=== PATIENT | male | born 1970 | race African-American/Black ===

== ENCOUNTER 2022-06-06 10:05 | Emergency (ER) | payer BC, OTHER, SELFPAY ==
[2022-06-06 10:39] VITALS: BP 110/81; PULSE 76; RESP 18; TEMP 36.4; O2SAT 99
--- NOTE | 2022-06-06 10:55 | ED.GENADULT ---
HPI - General Adult General Chief complaint: Eye Problems Stated complaint: bilateral eye drainage,rash Time Seen by Provider: 06/06/22 10:28 History of Present Illness HPI narrative: Mr Wing is a 51 y/o male. PMHx Non-contributory. Presents to [facility] today with acute complaints of bilateral eye 'puffiness', pruritus, and discharge for the past 3 days. Client reports to awake in the AM, with stickiness in his eyes, and has been using a warm compress to cleanse them in the AM. He does not wear contacts, does use prescriptive lenses. No eye pain, visual changes, or eye/global trauma. He tells me he has been ill with what he thought was viral in the past 1 week, because he did have 'cold sores' to his lips, however this has since healed. No ocular lesions. No fever. No additional acute c/o upon PE. Related Data Allergies Allergy/AdvReac Type Severity Reaction Status Date / Time iodine Allergy Mild UNKNOWN Verified 06/06/22 10:50 Iodinated Contrast Media Allergy Unknown Verified 06/06/22 10:50 morphine Allergy Unknown Verified 06/06/22 10:50 IV DYE Allergy Mild RASH Uncoded 06/06/22 10:50 SHELL FISH Allergy Mild RASH Uncoded 06/06/22 10:50 Review of Systems Review of Systems: CONSTITUTIONAL: Denies fever, chills, sweats. EYES: Denies visual changes. Positive redness, itching, & discharge. ENT: Denies rhinorrhea, congestion, sore throat, otalgia. CARDIOVASCULAR: Denies chest pain, palpitations, edema. RESPIRATORY: Denies dyspnea, wheezing, cough GASTROINTESTINAL: Denies abdominal pain, nausea, vomiting, diarrhea. GENITOURINARY: Denies dysuria, hematuria, abnormal discharge SKIN: Denies rash or itching. MUSCULOSKELETAL: Denies acute back pain, joint pain, or myalgia. NEUROLOGIC: Denies numbness, or focal weakness. PSYCHIATRIC: Denies anxiety or depression. PMFSH Social History Social History Smoking status: Former smoker Smoking end date: 09/20/10 Alcohol intake: current Exam Narrative: GENERAL: This is a well-nourished, well-developed adult, in no apparent distress. HEAD: normocephalic. EYES: PERRL. EOM intact. No nystagmus. With conjunctival erythema bilateral, mild residual lower lash line discharge/crustation. Lids everted and normal. Sclera clear/white. No herpetic lesions. EARS: External ears normal, auditory canals clear and without drainage, TMs normal. NOSE: External nose normal. Positive Rhinorrhea, no obstruction, nares patent. THROAT: Mucous membranes moist, posterior pharynx clear. No exudates. No residual mucous membrane lesion. NECK: Neck supple. CARDIOVASCULAR: Regular rate and rhythm. RESPIRATORY: Clear to auscultation. GASTROINTESTINAL: Abdomen soft. SKIN: warm, intact with no suspicious lesions or rash, good texture and turgor. NEURO: Alert and age appropriate. Course Course Level of Care: Express Care Visit Vital Signs Vital signs: Vital Signs Temperature 36.4 C 06/06/22 10:39 Pulse Rate 76 06/06/22 10:39 Respiratory Rate 18 06/06/22 10:39 Blood Pressure 110/81 06/06/22 10:39 Pulse Oximetry 99 06/06/22 10:39 Oxygen Delivery Room Air 06/06/22 10:39 Temperature 36.4 C 06/06/22 10:39 Pulse Rate 76 06/06/22 10:39 Respiratory Rate 18 06/06/22 10:39 Blood Pressure 110/81 06/06/22 10:39 Pulse Oximetry 99 06/06/22 10:39 Oxygen Delivery Room Air 06/06/22 10:39 Medical Decision Making [facility] Narrative Medical decision making narrative: -Bacterial conjunctivitis, superimposed on recent viral illness. -No ocular lesions or deficits. -Start daily Neomycin/Polymyxin Ophthalmic Gtts regimen as directed X 1 week. -Additional daily Claritin 10 mg po QD x 14 days for added antihistamine effects. -Resume all home compress and cleansing remedies. -PCP F/U 1 wk. -ER W/Emergent status changes. Pt agrees. Differential Diagnosis Differential Diagnosis: Differential Diagno
== END 2022-06-06 11:00 | disposition home or self-care (01) ==
PROVIDERS: Emergency Provider Nurse Practitioner Adult Health
DX: H10.9 Unspecified conjunctivitis (principal); Z87.891 Personal history of nicotine dependence
CPT/HCPCS: 99213; G0463

== ENCOUNTER 2024-09-12 20:40 | Inpatient (IN) | payer BC, OTHER, SELFPAY ==
--- NOTE | ~2024-09-12 | US_ITS ---
EXAMINATION: US abdomen limited DATE: 09/14/2024 08:50 INDICATION: Liver cysts TECHNIQUE: Multiple grayscale and Doppler ultrasound images of the abdomen were obtained. COMPARISON: CT dated 09/13/2024 FINDINGS: The region of the pancreas is obscured by shadowing bowel gas. Liver has normal echogenicity and cont our, with a smooth surface. There are a few anechoic hepatic cysts correspond to the largest of sever al cysts seen on prior CT which measure up to 1.1 cm. No intrahepatic biliary duct dilation suspected . Portal venous flow was seen in the hepatopetal, normal direction and has normal Doppler waveform. The gallbladder is normal in appearance. There is no cholelithiasis. The common bile duct measures 3 -4 mm, which is normal. Sonographic Noble sign was reported as negative by the humanities professor. IMPRESSION: 1. Several small hepatic cysts. Otherwise unremarkable right upper quadrant ultrasound. Reviewed, dictated and finalized at location B. NGUAL SPEECH LANGUAGE PATHOLOGIST IMPRESSION: 1. Several small hepatic cysts. Otherwise unremarkable right upper quadrant ult rasound.
--- NOTE | ~2024-09-12 | CT_ITS ---
EXAMINATION: CT chest abdomen pelvis wo con DATE: 09/13/2024 01:44 INDICATION: Right lung mass. Right upper quadrant abdominal pain. TECHNIQUE: Computed tomography (CT) of the chest, abdomen, and pelvis was performed without intraveno us contrast. Automated exposure control and iterative reconstruction technique were employed. The dos e-length product was 658.23 mGy-cm. COMPARISON: CT abdomen and pelvis 11/18/2012 FINDINGS: CHEST CT: There are airspace and groundglass opacities with air bronchograms in right upper lobe, consistent wi th pneumonia. No pleural effusion. The heart size is normal. No pericardial effusion. There is mild t horacic spondylosis. ABDOMEN/PELVIS CT: There are cysts in the liver measuring up to 12 mm. The gallbladder, spleen, pancreas, adrenal glands , and kidneys are normal. There is no urolithiasis. The prostate is mildly enlarged. There are no dil ated loops of bowel. The appendix is normal. There are no pathologically enlarged lymph nodes. There is no free intraperitoneal fluid. There is mild lumbar spondylosis. IMPRESSION: 1. Right upper lobe pneumonia. Reviewed, dictated and finalized at location A. TITCHING MACHINE OPERATOR
--- NOTE | ~2024-09-12 | XR_ITS ---
EXAMINATION: XR chest 1V portable DATE: 09/13/2024 01:29 INDICATION: Epigastric abdominal pain. TECHNIQUE: A single frontal view of the chest was obtained. COMPARISON: Chest 2 views 08/18/2008, chest CT 09/13/2024 FINDINGS: There are airspace opacities in right upper lobe with air bronchograms, consistent with pne umonia. No pleural effusion or pneumothorax. The heart size is normal. IMPRESSION: 1. Right upper lobe pneumonia. Reviewed, dictated and finalized at location A. NUE LIAISON
[2024-09-12 20:42] VITALS: BP 110/72; PULSE 112; RESP 16; TEMP 38.8; O2SAT 97
[2024-09-13] VITALS (18 sets, daily range): BP systolic 93–119; BP diastolic 52–73; PULSE 75–93; RESP 14–20; TEMP 36.6–40; O2SAT 94–100; BMI 31.4
[2024-09-13] MEDS: ACETAMINOPHEN 500 MG TABLET 1000 MG PO ×4 (00:44→23:24)
--- NOTE | 2024-09-13 00:47 | ED_ITS ---
HPI - Abdominal Pain General Chief Complaint: Abdominal Pain Stated Complaint: n/v x4 days, fevers Time Seen by Provider: 09/13/24 00:45 Source: patient and family Mode of arrival: ambulatory Limitations: no limitations History of Present Illness HPI narrative: Pt is a 54 yo male with a history of ulcerative colitis presenting to the ER for evaluation of RUQ abdominal pain, nausea and vomiting. Pt reports dull, aching abdominal pain over the past 4 days. Pt reports inability to tolerate oral intake. He visited a local urgent care and was prescribed zofran with no improvement in his symptoms. He denies bowel movement in four days. He denies dysuria or hematuria. He denies history of abdominal surgeries in the past. He states that he was diagnosed with ulcerative colitis following a colonoscopy years ago, but does not follow with GI or a PCP. He reports fever of 104F over the past four days as well. He denies cough, chest pain, shoulder pain, jaw pain. No dyspnea. Pt denies sick contacts. Related Data Allergies Allergy/AdvReac Type Severity Reaction Status Date / Time iodine Allergy Mild UNKNOWN Verified 09/12/24 20:41 Iodinated Contrast Media Allergy Unknown Unknown Verified 09/12/24 20:41 morphine Allergy Unknown Unknown Verified 09/12/24 20:41 IV DYE Allergy Mild RASH Uncoded 09/12/24 20:41 SHELL FISH Allergy Mild RASH Uncoded 09/12/24 20:41 Review of Systems 2 Review of Systems: All systems reviewed & are unremarkable except as noted in HPI and below PMFSH Past Medical History Medical History (Updated 09/13/24 @ 01:57 by Radha Higgins MD) Ulcerative colitis Social History Social History Smoking status: Former smoker Smoking end date: 09/20/10 Alcohol intake: current Exam 2 Const: General: diaphoretic Orientation/consciousness: patient oriented x3 Limitations: no limitations HENMT: Head: normal to inspection Eyes: Conjunctivae: conjunctivae normal Pupils: Equal, round and reactive pupils present Neck: Neck: no lymphadenopathy Chest: Chest palpation & inspection: normal inspection of the chest Resp: Effort & Inspection: normal respiratory effort Auscultation: clear to auscultation bilaterally Cardio: Rate: tachycardic Rhythm: regular rhythm GI: Inspection: distended GI Palp: Yes Tenderness to palpation present (GI) Auscultation: absent bowel sounds Other: Mild distension throughout, tender in the RUQ and epigastric area without rebound or guarding, no LLQ tenderness Back/Spine/Pelvis: Back: no CVA tenderness Skin: General skin exam: normal color Neuro: General: patient oriented x3 and moves all extremities Extrem: General: normal to inspection Psych: Mental Status: mental status grossly normal Course Vital Signs Vital signs: Vital Signs Temperature 38.8 C H 09/12/24 20:42 Pulse Rate 112 H 09/12/24 20:42 Respiratory Rate 16 09/12/24 20:42 Blood Pressure 110/72 09/12/24 20:42 Pulse Oximetry 97 09/12/24 20:42 Oxygen Delivery Room Air 09/12/24 20:42 Temperature 37.6 C 09/13/24 02:37 Pulse Rate 80 09/13/24 02:37 Respiratory Rate 16 09/13/24 02:37 Blood Pressure 107/73 09/13/24 02:37 Pulse Oximetry 98 09/13/24 02:37 Oxygen Delivery Room Air 09/12/24 20:42 MDM - Abdominal Pain MDM Narrative Medical decision making narrative: Patient was roomed, IV was placed, and pt initiated on sepsis protocol given vital signs. He was febrile and tachycardic. He was given a 30 ml/kg flud bolus, IV pain medication and IV zofran which was well tolerated. His labs are notable for ALLYSON with elevated Cr. No leukocytosis or lactic acidosis. He was given oral Tylenol as well. CXR concerning for right lobar pneumonia, initiated on IV antibiotics. CT Chest/abd/pelvis consistent with pneumonia, without other intrabdominal pathology. Plan for admission given ALLYSON, SIRS criteria pneumonia. Differential Diagnosis Differential diagnosis: Likely abdominal pain, acute appendicitis, calculus of kidney, constipation, diverticulitis, gastroenteritis, pancreatitis, small bowel obstruction and other (pneumonia, sepsis) Medical Records Attestation: I reviewed the patient's medical records. Lab Data Attestation: I reviewed the patient's lab results. 09/13/24 00:55 09/13/24 00:55 Labs: Lab Results 09/13/24 09/13/24 Range/Units 00:55 02:23 WBC 9.0 (4.5-10.0) K/mm3 RBC 4.37 L (4.6-6.20) M/mm3 Hgb 13.8 L (14.0-18.0) g/dL Hct 38.1 L (42.0-52.0) % MCV 87.2 (80-100) fl MCH 31.6 (26-34) pg MCHC 36.2 H (32-36) g/dl RDW 11.9 (11.5-14.5) % Plt Count 208 (150-375) k/mm3 MPV 9.0 (7.4-10.4) fl Immature Gran % (Auto) 0.4 (0-0.5) % Neut % (Auto) 77.8 H (45.5-73.1) % Lymph % (Auto) 14.1 L (18.3-44.2) % [place] % (Auto) 7.5 (2.6-8.5) % Eos % (Auto) 0.0 (0-4.4) % Baso % (Auto) 0.2 (0.2-1.2) % Lymph # (Auto) 1.26 (0.9-3.2) K/mm3 [place] # (Auto) 0.7 H (0.1-0.6) K/mm3 Eos # (Auto) 0.0 (0-0.3) K/mm3 Baso # (Auto) 0.0 (0.0-0.1) K/mm3 Abs Immat Gran (auto) 0.04 H (0.00-0.031) K/mm3 Absolute Neuts (auto) 7.0 H (1.3-6.7) K/mm3 Absolute Nucleated RBC 0.000 (0.0-0.012) K/mm3 Nucleated RBC % 0.0 (0.0-0.2) % Sodium 130 L (137-145) mmol/L Potassium 3.4 (3.4-5.0) mmol/L Chloride 104 (98-107) mmol/L Carbon Dioxide 19 L (22-30) mmol/L Anion Gap 7 (4-12) mmol/L BUN 19 (9-20) mg/dL Creatinine 1.70 H (0.7-1.3) mg/dL Estim Creat Clear Calc 43 ml/min Estimated GFR 52 L (59 - ) Glucose 120 H (65-110) mg/dL Lactic Acid 0.7 (0.7-2.0) mmol/L Calcium 8.3 L (8.4-10.2) mg/dL Total Bilirubin 0.7 (0.2-1.3) mg/dL AST 32 (17-59) U/L ALT 23 (6-50) U/L Alkaline Phosphatase 91 (38-126) U/L Troponin I < 0.012 (0.000-0.034) ng/mL Total Protein 7.0 (6.3-8.2) g/dL Albumin 3.7 (3.5-5.1) g/dL Lipase 51 (23-300) U/L Influenza A (RT-PCR) Negative (Negative) Influenza B (RT-PCR) Negative (Negative) SARS-CoV-2 RNA (RT-PCR) Negative (Negative) Imaging Data Attestation: I personally reviewed and interpreted this imaging study as follows: My impression: CXR: right middle lobe pneumonia ECG Data EKG #1: Attestation: I personally reviewed and interpreted this ECG as follows: ECG completion date: 09/13/24 ECG completion time: 01:52 Interpretation: Rate 78,normal sinus rhythm, no ST segment elevation, ID Intervals normal, QRS narrow Critical Care Time Critical Care Time Critical Care Time: Yes Total Critical Care Time: 30 Discharge Plan Discharge Instructions: Antibiotic Form Patient Language: Macedonian Prescriptions: No Action neomycin-polymyxin B-dexameth 3.5mg/mL-10,000 unit/mL-0.1 % drops,suspension 1 drp EACH EYE Q6H 7 Days Qty: 5 0RF loratadine [Claritin] 10 mg tablet 10 mg PO DAILY 14 Days Qty: 14 0RF Follow-up/Referrals: PHYSICIAN,CLINICAL UNIT EDUCATOR [Primary Care Provider] -
[2024-09-13 01:00] LABS: Basophils Percent Auto 0.2 % (0.2-1.2); Hematocrit 38.1 % (42.0-52.0); Hemoglobin 13.8 g/dL (14.0-18.0); Immature Granulocyte Absolute 0.04 K/mm3 (0.00-0.031); Immature Granulocyte Percent A 0.4 % (0-0.5); Lymphocytes Absolute Auto 1.26 K/mm3 (0.9-3.2); Lymphocytes Percent Auto 14.1 % (18.3-44.2); Mean Corpuscular HGB Conc 36.2 g/dl (32-36); Mean Corpuscular Hemoglobin 31.6 pg (26-34); Mean Corpuscular Volume 87.2 fl (80-100); Monocytes Absolute Auto 0.7 K/mm3 (0.1-0.6); Monocytes Percent Auto 7.5 % (2.6-8.5); Neutrophils Percent Auto 77.8 % (45.5-73.1); Platelet Count Result 208 k/mm3 (150-375); Red Blood Count 4.37 M/mm3 (4.6-6.20); Red Cell Distribution Width 11.9 % (11.5-14.5)
[2024-09-13 01:13] LABS: Alanine Aminotransferase 23 U/L (6-50); Albumin Level 3.7 g/dL (3.5-5.1); Alkaline Phosphatase 91 U/L (38-126); Anion Gap 7 mmol/L (4-12); Aspartate Amino Transferase 32 U/L (17-59); Bilirubin,Total 0.7 mg/dL (0.2-1.3); Blood Urea Nitrogen 19 mg/dL (9-20); Calcium 8.3 mg/dL (8.4-10.2); Carbon Dioxide 19 mmol/L (22-30); Chloride 104 mmol/L (98-107); Estimated CRCL calculation 43 ml/min; Estimated Glomerular Filt Rate 52; Glucose 120 mg/dL (65-110); Lipase 51 U/L (23-300); Potassium 3.4 mmol/L (3.4-5.0); Sodium 130 mmol/L (137-145)
--- NOTE | 2024-09-13 01:14 | ECG_ITS ---
Test Date: 2024-09-13 01:52:26 Measurements Intervals [place] Rate: 78 P: 15 IL: 156 QRS: 46 QRSD: 86 T: 52 QT: 363 QTc: 415 Interpretive Statements SINUS RHYTHM No previous ECG available for comparison Electronically Signed On 09-13-2024 13:42:10 [employer] by Luis Fernando Guallpa M.D.
[2024-09-13] MEDS: SODIUM CHLORIDE 0.9% IV 1,000 ML 999 ML IV CONT ×3 (01:28→01:31)
[2024-09-13] MEDS: ONDANSETRON INJ 4 MG/2 ML VIAL IV PUSH (01:29)
[2024-09-13] MEDS: HYDROmorphone HCL INJ (*CRX) 1 MG/ML SYR 0.5 MG IV PUSH (01:29)
[2024-09-13 01:43] LABS: Troponin I < 0.012 ng/mL (0.000-0.034)
[2024-09-13 02:43] LABS: Lactic Acid Reflex 0.7 mmol/L (0.7-2.0)
[2024-09-13 03:14] LABS: Influenza A QL RT-PCR Negative (Negative); Influenza B QL RT-PCR Negative (Negative); SARS-CoV-2 RNA PCR Negative (Negative)
[2024-09-13] MEDS: AZITHROMYCIN 500 MG/NS 250 ML 500 MG/250 ML BAG 250 MG IVPB (03:28)
[2024-09-13] MEDS: SODIUM CHLORIDE 0.9% IV 600 ML 999 ML IV CONT (03:29)
--- NOTE | 2024-09-13 03:39 | PM.IMHP ---
H&P: HPI History of Present Illness Date/Time: 09/13/24 03:39 Chief Complaint: Right upper quadrant pain Narrative: This is a 54-year-old male with past medical history significant for ulcerative colitis in remission, patient presents to the emergency room due to right upper quadrant pain nausea vomiting generalized malaise, body aches and pains, chills, night sweats, poor per orally intake. Preliminary workup was significant for chest x-ray with right lung pneumonia. Patient has been admitted for further evaluation management and treatment. Review of Systems Review of Systems: Right upper quadrant pain, nausea, vomiting, generalized malaise, body aches and pains, chills, night sweats, poor per orally intake, poor appetite PMFSH Past Medical History Medical History (Updated 09/13/24 @ 03:40 by Huseyin Chen MD) Ulcerative colitis Social History Social History Smoking status: Former smoker Smoking end date: 09/20/10 Alcohol intake: current Meds Home Medications and Allergies Home Medications ?Medication ?Instructions ?Recorded ?Confirmed ?Type loratadine 10 mg tablet (Claritin) 10 mg PO DAILY 14 days #14 tabs 06/06/22 Rx [id number] 3.5 1 drp EACH EYE Q6H 7 days #5 mL 06/06/22 Rx mg/mL-10,000 unit/mL-0.1% eye drops Allergies Allergy/AdvReac Type Severity Reaction Status Date / Time iodine Allergy Mild UNKNOWN Verified 09/12/24 20:41 Iodinated Contrast Media Allergy Unknown Unknown Verified 09/12/24 20:41 morphine Allergy Unknown Unknown Verified 09/12/24 20:41 IV DYE Allergy Mild RASH Uncoded 09/12/24 20:41 SHELL FISH Allergy Mild RASH Uncoded 09/12/24 20:41 Vital Signs Vital Signs - 24 hr 09/12/24 20:42 09/13/24 00:41 09/13/24 01:14 Temperature 102 F H 104 F H 99.6 F Pulse Rate 112 H 93 Respiratory Rate 16 16 Blood Pressure 110/72 119/73 Pulse Oximetry 97 99 Oxygen Delivery Room Air 09/13/24 02:37 Temperature 99.6 F Pulse Rate 80 Respiratory Rate 16 Blood Pressure 107/73 Pulse Oximetry 98 Oxygen Delivery Exam Const: General: comfortable, no acute distress, well developed, alert, awake, ill appearing acutely and average body habitus Nutritional Appearance: average body habitus Orientation/consciousness: patient oriented x3 HENMT: Head: normal to inspection, normocephalic and atraumatic Ears: hearing grossly normal bilaterally Face/Nose/Sinus: normal facial exam Face and sinus: normal facial exam Eyes: General: appearance normal, both eyes and all related structures Pupils: Equal, round and reactive pupils present EOM: EOMs intact bilaterally Neck: Neck: full ROM, no lymphadenopathy and no JVD Thyroid: thyroid normal Lymphatic: no lymphadenopathy noted Resp: Effort & Inspection: normal respiratory effort and able to speak in complete sentences Auscultation: clear to auscultation bilaterally Cardio: Jugular venous distension: no JVD Rate: regular rate Rhythm: regular rhythm Heart sounds: S1 normal heart sound present and S2 normal heart sound present GI: GI Palp: Yes Soft to palpation and Yes No hepatosplenomegaly present : General: Yes deferred Skin: Rashes: no rashes Wounds: no wounds Neuro: General: patient oriented x3 and CN's II-XI intact bilaterally Cranial nerves: Yes CN's II-XII intact bilaterally and Yes Equal, round and reactive pupils present Cognition (Neuro): normal cognition Speech: normal speech Gait exam (Neuro): Normal gait present Motor exam (neuro): 5/5 motor strength present throughout Extrem: General: normal to inspection, full ROM, no joint enlargement and no pedal edema H&P: Results Labs Labs: Short CBC 09/13/24 Range/Units 00:55 WBC 9.0 (4.5-10.0) K/mm3 Hgb 13.8 L (14.0-18.0) g/dL Hct 38.1 L (42.0-52.0) % Plt Count 208 (150-375) k/mm3 BMP 09/13/24 00:55 Sodium 130 L Potassium 3.4 Chloride 104 Carbon Dioxide 19 L BUN 19 Creatinine 1.70 H Glucose 120 H Calcium 8.3 L Cardiac Enzymes 09/13/24 Range/Units 00:55 Troponin I < 0.012 (0.000-0.034) ng/mL Liver Function 09/13/24 Range/Units 00:55 Total Bilirubin 0.7 (0.2-1.3) mg/dL AST 32 (17-59) U/L ALT 23 (6-50) U/L Alkaline Phosphatase 91 (38-126) U/L Albumin 3.7 (3.5-5.1) g/dL Assessment and Plan Assessment and plan (1) Pneumonia involving right lung: Code(s): J18.9 - Pneumonia, unspecified organism Status: Acute Assessment and Plan: Admit to regular medical floor Patient is started on Rocephin and Zithromax Cultures in progress (2) Nausea & vomiting: Code(s): R11.2 - Nausea with vomiting, unspecified Status: Acute Assessment and Plan: Likely secondary to systemic inflammatory response (3) Ulcerative colitis: Code(s): K51.90 - Ulcerative colitis, unspecified, without complications Status: Acute Assessment and Plan: In remission Hospitalist MIPS Advance Care Plan I have confirmed that the patient's Advanced Care Plan is present, code status is documented, or surrogate decision maker is listed in patient medical record.: Yes Medication Reconciliation I have utilized all available resources to obtain, update and review the patients current medications (includes all prescriptions, OTC, herbals, cannabis, and nutritional supplements).: Yes
[2024-09-13] MEDS: SODIUM CHLORIDE 0.9% IV 1,000 ML 125 ML IV CONT ×3 (04:34→21:48)
[2024-09-13 04:49] LABS: Add Urine Microscopic? YES; Appearance Urine Clear (Clear); Bacteria Urine None Seen /hpf; Bilirubin Urine Negative (Negative); Blood Urine 2+ (Negative); Color Urine Yellow (Yellow); Glucose Urine UA Negative (Negative); Ketones Urine 2+ mg/dL (Negative); Leukocyte Esterase Ur Negative LEU/UL (Negative); Nitrate Urine Negative (Negative); Non Pathogenic Casts 0-2; Protein Urine 1+ mg/dL (Negative); Squamous Epithelial Cell Urine None Seen /hpf (Few); WBC Urine 0-5 /hpf (0-3)
--- NOTE | 2024-09-13 06:16 | ADMGEN ---
This patient, Deep Wing, was admitted to 2 Medical Room 242-. Patient/family oriented to hospital policies and general routines including ID bracelet, bed and alarms, visiting hours, pain management, procedures, bathroom and other care routines, personal items, smoking policy, room service/diet, and visiting hours. Information on how to activate the Rapid Response Team has been discussed. Patient/Family are encouraged to report perceived risks to care and to ask questions if they do not understand what they are told or what they should do.
--- NOTE | 2024-09-13 08:34 | P.PNIM_ITS ---
Progress Note: A&P Assessment and Plan (1) Pneumonia involving right lung: Code(s): J18.9 - Pneumonia, unspecified organism Status: Acute Assessment and Plan: Patient on Rocephin and Zithromax Started on Mucinex. Cultures in progress (2) Nausea & vomiting: Code(s): R11.2 - Nausea with vomiting, unspecified Status: Acute Assessment and Plan: Possibly secondary to systemic inflammatory response Denies symptoms currently. (3) Ulcerative colitis: Code(s): K51.90 - Ulcerative colitis, unspecified, without complications Status: Acute Assessment and Plan: In remission (4) Liver cyst: Code(s): K76.89 - Other specified diseases of liver Status: Acute Assessment and Plan: US liver ordered. Further w/u pending US results. Plan Continue IV abx as we follow cultures. Time Spent With Patient Time with patient: 25 - 35 minutes Subjective Date/time seen: 09/13/24 08:34 Patient states he feels alright and abdominal pain is gone for now. States starting to cough but nothing coming out. Interval history: Patient calm on bedrest and looks to be in no acute distress. Review of Systems Review of Systems: All systems reviewed & are unremarkable except as noted in HPI and below Exam Narrative: General: Fair appearing, no acute distress. HEENT: Atraumatic, PERRL, EOM, anicteric. NECK: Supple. Lungs: Clear bilaterally. Heart: RRR, no murmurs. Abdomen: Soft, non-tender, non-distended, +ve sounds X4 quadrants. Extremities: Acyanotic, no edema. Neuro: Well oriented, CN II-XII grossly intact. Psych: Pleasant and co-operative. Objective Data Vital Signs Vital Signs: Vital Signs - 24 hr 09/12/24 20:42 09/13/24 00:41 09/13/24 01:14 Temperature 102 F H 104 F H 99.6 F Pulse Rate 112 H 93 Respiratory Rate 16 16 Blood Pressure 110/72 119/73 Pulse Oximetry 97 99 Oxygen Delivery Room Air 09/13/24 02:37 09/13/24 03:52 09/13/24 04:00 Temperature 99.6 F 97.8 F 99.2 F Pulse Rate 80 77 87 Respiratory Rate 16 16 20 Blood Pressure 107/73 105/72 101/68 Pulse Oximetry 98 100 100 Oxygen Delivery 09/13/24 04:57 09/13/24 05:45 09/13/24 06:10 Temperature 98.1 F 99.2 F 100.5 F H Pulse Rate 77 87 Respiratory Rate 14 20 Blood Pressure 103/71 101/68 Pulse Oximetry 100 100 Oxygen Delivery Intake/Output Intake/Output: Intake & Output 09/10/24 09/11/24 09/12/24 09/13/24 23:59 23:59 23:59 23:59 Intake Total 3900 Balance 3900 Meds/Results Medications: Active Medications Generic Name Dose Route Start Last Admin Trade Name Freq PRN Reason Stop Dose Admin Acetaminophen 1,000 mg 09/13/24 05:32 09/13/24 06:10 Acetaminophen 500 Mg Tablet PO 1,000 mg Q6H PRN Administration Mild Pain (1-3) or Fever Al Hydrox/Mg Hydrox/Simethicone 30 ml 09/13/24 05:35 Mag Hydrox/Al Hydrox/Simeth 30 Ml Udc PO Q6H PRN Indigestion Albuterol/Ipratropium 3 ml 09/13/24 05:31 Ipratropium 0.5 Mg/Albuterol Sulfate 2.5 Mg Ampul.Neb 3 Ml INHALATION Q6HRT PRN sob Enoxaparin Sodium 40 mg 09/13/24 09:00 Enoxaparin 40 Mg/0.4 Ml Syringe SUB-Q DAILY ESTRELLA Azithromycin 500 mg in 250 mls @ 250 mls/hr 09/14/24 05:00 Zithromax IVPB Q24H ESTRELLA Sodium Chloride 1,000 mls @ 125 mls/hr 09/13/24 03:25 09/13/24 04:34 Normal Saline Iv IV CONT 125 mls/hr .Q8H ESTRELLA Administration Ondansetron HCl 4 mg 09/13/24 03:22 Ondansetron Inj 4 Mg/2 Ml Vial IV PUSH Q4H PRN Nausea Polyethylene Glycol 17 gm 09/13/24 05:35 Polyethylene Glycol 3350 17 Gm Powd.Pack PO QAM PRN Constipation Radiology Results: ITS Impressions Chest X-Ray 09/13/24 06:56 IMPRESSION: 1. Right upper lobe pneumonia. Chest/Abdomen/Pelvis CT 09/13/24 07:21 IMPRESSION: 1. Right upper lobe pneumonia. Labs Labs: Laboratory Results - last 24 hr 12/25/24 12/25/24 12/25/24 00:55 02:23 04:33 WBC 9.0 RBC 4.37 L Hgb 13.8 L Hct 38.1 L MCV 87.2 MCH 31.6 MCHC 36.2 H RDW 11.9 Plt Count 208 MPV 9.0 Immature Gran % (Auto) 0.4 Neut % (Auto) 77.8 H Lymph % (Auto) 14.1 L [place] % (Auto) 7.5 Eos % (Auto) 0.0 Baso % (Auto) 0.2 Lymph # (Auto) 1.26 [place] # (Auto) 0.7 H Eos # (Auto) 0.0 Baso # (Auto) 0.0 Abs Immat Gran (auto) 0.04 H Absolute Neuts (auto) 7.0 H Absolute Nucleated RBC 0.000 Nucleated RBC % 0.0 Sodium 130 L Potassium 3.4 Chloride 104 Carbon Dioxide 19 L Anion Gap 7 BUN 19 Creatinine 1.70 H Estim Creat Clear Calc 43 Estimated GFR 52 L Glucose 120 H Lactic Acid 0.7 Calcium 8.3 L Total Bilirubin 0.7 AST 32 ALT 23 Alkaline Phosphatase 91 Troponin I < 0.012 Total Protein 7.0 Albumin 3.7 Lipase 51 Urine Color Yellow Urine Appearance Clear Urine pH 6.0 Ur Specific [place] 1.020 Urine Protein 1+ H Urine Glucose (UA) Negative Urine Ketones 2+ H Ur Blood (Man) 2+ H Urine Nitrate Negative Urine Bilirubin Negative Urine Urobilinogen 1.0 Leukocyte Esterase Rfl Negative Urine RBC 3-5 H Urine WBC 0-5 Ur Squamous Epith Cells None seen Urine Bacteria None seen Urine Casts 0-2 Influenza A (RT-PCR) Negative Influenza B (RT-PCR) Negative SARS-CoV-2 RNA (RT-PCR) Negative Quality VTE Prophylaxis VTE prophylaxis: mechanical ordered Hospitalist [facility] Advance Care Plan I have confirmed that the patient's Advanced Care Plan is present, code status is documented, or surrogate decision maker is listed in patient medical record.: Yes Medication Reconciliation I have utilized all available resources to obtain, update and review the patients current medications (includes all prescriptions, OTC, herbals, cannabis, and nutritional supplements).: Yes
[2024-09-13] MEDS: ENOXAPARIN 40 MG/0.4 ML SYRINGE SUB-Q (08:36)
[2024-09-13] MEDS: IBUPROFEN 400 MG TABLET PO (17:17)
[2024-09-13] MEDS: guaiFENesin 12 HR 600 MG TABCR PO (17:18)
[2024-09-14] VITALS (7 sets, daily range): BP systolic 94–112; BP diastolic 54–69; PULSE 69–78; RESP 16–20; TEMP 36.9–37.7; O2SAT 97–99
[2024-09-14] MEDS: guaiFENesin 12 HR 600 MG TABCR PO ×2 (05:10→16:29)
[2024-09-14] MEDS: AZITHROMYCIN 500 MG/NS 250 ML 500 MG/250 ML BAG 250 MG IVPB (05:10)
[2024-09-14] MEDS: ENOXAPARIN 40 MG/0.4 ML SYRINGE SUB-Q (08:04)
[2024-09-14] MEDS: SODIUM CHLORIDE 0.9% IV 1,000 ML 125 ML IV CONT ×2 (08:04→16:28)
--- NOTE | 2024-09-14 09:31 | PM.IMPN ---
Progress Note: A&P Assessment and Plan (1) Pneumonia involving right lung: Code(s): J18.9 - Pneumonia, unspecified organism Status: Acute Assessment and Plan: Patient on Rocephin and Zithromax Started on Mucinex. Preliminary blood cultures NGTD. Continue to follow cultures. (2) Nausea & vomiting: Code(s): R11.2 - Nausea with vomiting, unspecified Status: Acute Assessment and Plan: Possibly secondary to lung infection. Denies symptoms currently and tolerating meals fairly. (3) Ulcerative colitis: Code(s): K51.90 - Ulcerative colitis, unspecified, without complications Status: Acute Assessment and Plan: In remission (4) Liver cyst: Code(s): K76.89 - Other specified diseases of liver Status: Acute Assessment and Plan: US liver; Several small hepatic cysts. Otherwise unremarkable right upper quadrant ultrasound. No further w/u for now. Plan Continue IV abx as we follow cultures. We'll consider discharge in AM if patient condition continues to improve. Time Spent With Patient Time with patient: 15 - 25 minutes Subjective Date/time seen: 09/14/24 09:31 Patient states he feels better and his breathing is much better compared to when he came in. Interval history: Patient calm on bedrest with family bedside, appears to be in no acute distress. Patient admitted for CAP and currently on IV abx. Review of Systems Review of Systems: Patient presented with right upper quadrant pain, nausea, vomiting, generalized malaise, body aches and pains, chills, night sweats, poor oral intake, poor appetite. CXR consistent with RUL PNA. All systems reviewed & are unremarkable except as noted in HPI and below Exam Narrative: General: Fair appearing, no acute distress. HEENT: Atraumatic, PERRL, EOM, anicteric. NECK: Supple. Lungs: Clear bilaterally. Heart: RRR, no murmurs. Abdomen: Soft, non-tender, non-distended, +ve sounds X4 quadrants. Extremities: Acyanotic, no edema. Neuro: Well oriented, CN II-XII grossly intact. Psych: Pleasant and co-operative. Objective Data Vital Signs Vital Signs: Vital Signs - 24 hr 09/13/24 11:33 09/13/24 12:10 09/13/24 12:12 Temperature 99.6 F 102.8 F H 102.8 F H Pulse Rate 87 Respiratory Rate 18 Blood Pressure 113/69 Pulse Oximetry 98 Oxygen Delivery 09/13/24 13:12 09/13/24 17:23 09/13/24 20:00 Temperature 100.3 F H 101.4 F H 99.3 F Pulse Rate 76 75 Respiratory Rate 17 18 Blood Pressure 106/56 L 93/52 L Pulse Oximetry 98 94 Oxygen Delivery 09/13/24 20:00 09/13/24 22:57 09/13/24 23:24 Temperature 99.2 F 99.2 F Pulse Rate Respiratory Rate Blood Pressure Pulse Oximetry Oxygen Delivery Room Air 09/14/24 00:00 09/14/24 02:00 09/14/24 03:45 Temperature 98.4 F 98.5 F Pulse Rate 76 69 Respiratory Rate 18 17 Blood Pressure 105/54 L 109/55 L Pulse Oximetry 97 98 Oxygen Delivery 09/14/24 09:00 Temperature 99.7 F H Pulse Rate 78 Respiratory Rate 16 Blood Pressure 112/62 Pulse Oximetry 99 Oxygen Delivery Intake/Output Intake/Output: Intake & Output 09/11/24 09/12/24 09/13/24 09/14/24 23:59 23:59 23:59 23:59 Intake Total 6430 1670 Balance 6430 1670 Meds/Results Medications: Active Medications Generic Name Dose Route Start Last Admin Trade Name Freq PRN Reason Stop Dose Admin Acetaminophen 1,000 mg 09/13/24 05:32 09/13/24 23:24 Acetaminophen 500 Mg Tablet PO 1,000 mg Q6H PRN Administration Mild Pain (1-3) or Fever Al Hydrox/Mg Hydrox/Simethicone 30 ml 09/13/24 05:35 Mag Hydrox/Al Hydrox/Simeth 30 Ml Udc PO Q6H PRN Indigestion Albuterol/Ipratropium 3 ml 09/13/24 05:31 Ipratropium 0.5 Mg/Albuterol Sulfate 2.5 Mg Ampul.Neb 3 Ml INHALATION Q6HRT PRN sob Enoxaparin Sodium 40 mg 09/13/24 09:00 09/14/24 08:04 Enoxaparin 40 Mg/0.4 Ml Syringe SUB-Q 40 mg DAILY ESTRELLA Administration Guaifenesin 600 mg 09/13/24 18:00 09/14/24 05:10 Guaifenesin 12 Hr 600 Mg Tabcr PO 600 mg Q12H ESTRELLA Administration Azithromycin 500 mg in 250 mls @ 250 mls/hr 09/14/24 05:00 09/14/24 06:56 Zithromax IVPB Infused Q24H ESTRELLA Infusion Sodium Chloride 1,000 mls @ 125 mls/hr 09/13/24 03:25 09/14/24 08:04 Normal Saline Iv IV CONT 125 mls/hr .Q8H ESTRELLA Administration Ceftriaxone Sodium 1 gm in 50 mls @ 100 mls/hr 09/13/24 22:00 09/13/24 22:18 Rocephin 1 Gm/Ns 50 Ml IVPB Infused Q24H ESTRELLA Infusion Ibuprofen 400 mg 09/13/24 16:34 09/13/24 17:17 Ibuprofen 400 Mg Tablet PO 400 mg Q8H PRN Administration Pain or Fever Ondansetron HCl 4 mg 09/13/24 03:22 Ondansetron Inj 4 Mg/2 Ml Vial IV PUSH Q4H PRN Nausea Polyethylene Glycol 17 gm 09/13/24 05:35 Polyethylene Glycol 3350 17 Gm Powd.Pack PO QAM PRN Constipation Radiology Results: ITS Impressions Chest X-Ray 09/13/24 06:56 IMPRESSION: 1. Right upper lobe pneumonia. Chest/Abdomen/Pelvis CT 09/13/24 07:21 IMPRESSION: 1. Right upper lobe pneumonia. Abdomen Ultrasound 09/14/24 08:58 IMPRESSION: 1. Several small hepatic cysts. Otherwise unremarkable right upper quadrant ultrasound. Quality VTE Prophylaxis VTE prophylaxis: mechanical ordered Hospitalist [facility] Advance Care Plan I have confirmed that the patient's Advanced Care Plan is present, code status is documented, or surrogate decision maker is listed in patient medical record.: Yes Medication Reconciliation I have utilized all available resources to obtain, update and review the patients current medications (includes all prescriptions, OTC, herbals, cannabis, and nutritional supplements).: Yes
[2024-09-14 10:19] LABS: Anion Gap 1 mmol/L (4-12); Blood Urea Nitrogen 11 mg/dL (9-20); Calcium 6.8 mg/dL (8.4-10.2); Carbon Dioxide 21 mmol/L (22-30); Chloride 111 mmol/L (98-107); Estimated CRCL calculation 75 ml/min; Estimated Glomerular Filt Rate > 60; Glucose 96 mg/dL (65-110); Potassium 3.6 mmol/L (3.4-5.0); Sodium 133 mmol/L (137-145)
[2024-09-14] MEDS: IBUPROFEN 400 MG TABLET PO (18:52)
[2024-09-15] VITALS: BP 104/60; PULSE 77; RESP 18; TEMP 37; O2SAT 99
[2024-09-15] MEDS: SODIUM CHLORIDE 0.9% IV 1,000 ML 125 ML IV CONT (01:14)
[2024-09-15 04:00] VITALS: BP 109/66; PULSE 67; RESP 20; TEMP 37.1; O2SAT 99
[2024-09-15] MEDS: AZITHROMYCIN 500 MG/NS 250 ML 500 MG/250 ML BAG 250 MG IVPB (05:29)
[2024-09-15] MEDS: guaiFENesin 12 HR 600 MG TABCR PO (05:30)
--- NOTE | 2024-09-15 11:56 | PM.DS ---
DS: Admitting Diagnosis Discharge Date 09/15/24 Admitting Diagnosis Right Upper Lobe Pneumonia DS: Discharge Diagnosis Discharge Diagnosis (1) Pneumonia involving right lung: Code(s): J18.9 - Pneumonia, unspecified organism Status: Acute Assessment and Plan: Patient has been on Rocephin and Zithromax Treated with Mucinex inpatient. Preliminary blood cultures NGTD. Blood cultures NGTD. (2) Nausea & vomiting: Code(s): R11.2 - Nausea with vomiting, unspecified Status: Acute Assessment and Plan: Possibly related to above. Resolved prior to discharge. (3) Ulcerative colitis: Code(s): K51.90 - Ulcerative colitis, unspecified, without complications Status: Acute Assessment and Plan: In remission (4) Liver cyst: Code(s): K76.89 - Other specified diseases of liver Status: Acute Assessment and Plan: US liver; Several small hepatic cysts. Otherwise unremarkable right upper quadrant ultrasound. No further w/u for now. Plan Discharge home. DS: Summary Hospital Course Reason for hospitalization: RUL PNA Hospital Course: Patient presented to the hospital with right upper quadrant abdominal pain, nausea, vomiting, generalized malaise, body aches, pains, chills, night sweats and poor per orally intake. Preliminary workup was significant for chest x-ray with Right Upper Lobe Pneumonia, and he was admitted for treatment. Patient has been treated with IV Ceftriaxone and Azithromycin, and he reports much improvement to his symptoms, including his appetite. Patient states he feels good and wants to be discharged today. Patient will be discharged on Augmentin PO to complete his antibiotics treatment. Patient is medically stable for discharge with no acute distress noted or reported prior to discharge. Status at Discharge Functional status at discharge: independent ambulation Overall status at discharge: patient is progressing back to baseline Time Spent with Patient Time attestation: Total time spent providing and/or coordinating discharge services: Time spent: Greater than 30 minutes Exam Narrative: General: Well appearing, no acute distress. HEENT: Atraumatic, PERRL, EOM, anicteric. NECK: Supple. Lungs: Clear bilaterally. Heart: RRR, no murmurs. Abdomen: Soft, non-tender, non-distended, +ve sounds X4 quadrants. Extremities: Acyanotic, no edema. Neuro: Well oriented, CN II-XII grossly intact. Psych: Pleasant and co-operative. DS: Data Data Completed and Pending Labs on day of discharge: Preliminary micro results at discharge 09/13/24 02:23 Blood Culture - Preliminary Blood 09/13/24 02:23 Blood Culture - Preliminary Blood Discharge Plan Discharge Attending physician on discharge: Bernard Salmeron Discharging Clinician: Iftikhar Perez Anticipated Discharge Date/Time: 09/15/24 12:13 Patient Disposition: Home, Self-Care Activity: as tolerated Diet: as tolerated Patient Instructions: Antibiotic Form Patient Language: Spanish Stand Alone Forms: General Discharge Information Follow-up/Referrals: PHYSICIAN,CURB SETTER HELPER [Primary Care Provider] - 1 Week Discharge Medications: New guaifenesin [Mucus Relief ER] 600 mg Tablet Extended Release 12hr 600 mg PO Q12H Qty: 7 0RF azithromycin 500 mg tablet 500 mg PO DAILY 2 Days Qty: 2 0RF Rx Instructions: start on day 2 of therapy amoxicillin-pot clavulanate 875-125 mg tablet 1 tablet PO Q12H Qty: 10 0RF Continued oxymetazoline [Afrin Sinus (oxymetazoline)] 0.05 % spray,non-aerosol 2 spray intranasal Q12H PRN (Reason: nasal congestion) loratadine [Claritin] 10 mg tablet 10 mg PO DAILY PRN (Reason: allergy symptoms) Date of admission: 09/14/24 08:09 Primary Care Provider: PHYSICIAN,CURB SETTER HELPER Admitting Provider: Huseyin Chen V. Attending physician on admission: Huseyin Chen V. Condition: Stable Quality If No VTE Prophylaxis Answer both mechanical and pharmacologic: Reason no mechanical VTE proph: low risk/not indicated Reason no pharmacologic proph: low risk/not indicated Hospitalist MIPS Heart Failure (Exclusion) Patient has history of Heart Transplant or Left Ventricular Assistive Device?: No IF YES, STOP HERE Heart Failure (Qualifier) Patient has current or prior documentation of LVEF less than or equal to 40%, or mod/servere depressed LVSF?: No IF NO, STOP HERE
--- OUTSIDE RECORDS SUMMARY | 2024-09-20 02:19 | XMS_ITS | Continuity of Care Document ---
Author Organization [facility] Address [address] [place] [id number] Phone Care Team Providers Care Scarifier Operator Name Role Phone Matias Hopson MD Unavailable Unavailable Allergies, Adverse Reactions, Alerts Substance Reaction Status Criticality iodine Active No Information morphine Active No Information Procedures Procedure Date PREV VISIT, NEW, AGE 40-64 OFFICE/OUTPATIENT VISIT, [facility] [place] Advance Directives Directive Yes / No Effective Date File Name No Information Encounters Encounter Description Practice Location Reason(s) For Visit Diagnoses Date Provider Providers Copied on Encounter [facility], [address] [place], [address], tel:[phone] [facility] No Information 3 Mark Anthony Salcedo. [address], [place], [address]. tel:[phone] Referring Provider: Matias Hopson, [address] [place] [facility] [address], [place], [address]. tel:[phone] PREV VISIT, NEW, AGE 40-64 [facility], [address], [place], [address], [place] tel:[phone] [facility] Physical (chief complaint) Dietary surveillance and counselingRoutine Medical ExamChest Pain, UnspecifiedAbdomina l PainHEMATURIA NOSRoutine Medical Exam 3 Mark Anthony Salcedo. [address], [address], [place], [address]. tel:[phone] Referring Provider: Matias Hopson, [address], [place], [address]. tel:[phone] Family History Family Member Type Diagnosis Age At Onset Father Problem (finding) Alive and well Brother Problem (finding) Alive and well Mother Problem (finding) Alive and well Payers Payer name Insurance type Covered democrat ID Authoriza tion(s) No Information Social History Type Description Quantity Date Captured Comments Sex Male Smoking Status No Information Chief Complaint And Reason For Visit No Information Plan Of Treatment Date Type Action Status Goal Tobacco cessation counseling completed Referral Ordered: CT ABD & PELVIS W/O CONTRAST ordered History Of Present Illness Encounter Date Complaint History Of Prese nt Illness No Information Instructions Date Instruction Additional Infor blanco Dietary counseling Related to Di etary surveillance counseling Decrease caloric intake Related to Dietary surveillance counseling Assessments Type Assessment Date No Information
--- OUTSIDE RECORDS SUMMARY | 2024-09-20 02:19 | XMS_ITS | Clinical Summary ---
Author Organization [facility] Address [address] [place] [address]. [place], [place] [id number] [place] [id number] Care Team Providers Care Manager Telecom Name Role Phone Unavailable Primary Care Provider Unavailabl e Social History Tobacco Use Types Packs/Day Years Used Date Smoking Tobacco: Never Assessed Sex and Gender Information Value Date Recorded Sex Assigned at Not on file Legal Sex Male 8:02 PM CDT Gender Identity Not on file Sexual Orientation Not on file Plan of Treatment Health Maintenance Due Date Last Done Comments Colorectal Cancer Screening Colonoscopy (10 Years) 1972 Annual Physical 1975 Hepatitis C 1990 DTaP, Tdap and Td Vaccines ( 1 - Tdap) 1991 Hepatitis B Vaccines (1 of 3 - 19+ 3-dose series) 1991 Zoster Vaccines (1 of 2) 2022 COVID-19 Vaccine ( - 2023-2 5 season) 2024 Influenza Adult (#1) 2024 Meningococcal Vaccine Aged Out No carol sarwat eligible based on patient's age to complete this topic Pneumococcal Vaccine: Pediat rics (0 to 5 Years) and At-Risk Patients (6 to 64 Years) Aged Out No longer eligible b ased on patient's age to complete this topic RSV Immunizations Under 20 Months Aged Out No longer eligible based on patient's age to complete this topic
--- OUTSIDE RECORDS SUMMARY | 2024-09-20 02:19 | XMS_ITS | Encounter Summary ---
Author Organization [facility] Address [address] [place] [address]. [place] [address] [place] [address] Care Team Providers Care Tailman Name Role Phone Unavailable Primary Care Provider Unavailabl e Encounter Details Date Type Department Care Team (Late st Contact Info) Description 01/09/2005 Abstract [facility] [place] [address] Jean Valdivia MD [address] [address] Social History Tobacco Use Types Packs/Day Years Used Date Smoking Tobacco: Never Assessed Sex and Gender Information Value Date Recorded Sex Assigned at Not on file Legal Sex Male 8:02 PM CDT Gender Identity Not on file Sexual Orientation Not on file documented as of this encounter Plan of Treatment Not on file documented as of this encounter Visit Diagnoses Not on filedocumented in this encounter
== END 2024-09-15 12:45 | disposition home or self-care (01) | DRG 194 ==
LOC: ANHED 09-13 00:54 → ANH2MED 09-13 05:40
PROVIDERS: Physician Assistant; Admitting Provider Internal Medicine; Emergency Provider Emergency Medicine; Visit Provider Nurse Practitioner Adult Health
DX: J18.9 Pneumonia, unspecified organism (principal); K51.90 Ulcerative colitis, unspecified, without complications; Z87.891 Personal history of nicotine dependence; K76.89 Other specified diseases of liver
CPT/HCPCS: 36415; 71045; 71250; 74176; 76705; 80048; 80053; 81001; 83605; 83690; 84484; 85025; 87040; 87636; 93005; 96361; 96365; 96366; 96367; 96372; 96375; 99285; A9270; G0378; J0456; J0696; J1171; J1650; J2405; J7030

== ENCOUNTER 2025-04-28 08:05 | Emergency (ER) | payer BC, OTHER, SELFPAY ==
--- OUTSIDE RECORDS SUMMARY | 2025-04-28 08:10 | XMS_ITS | Continuity of Care Document ---
Author Organization [facility] Address [address] [place] [address] [place] [address] Phone Care Team Providers Care Metal Burnisher Name Role Phone Matias Hopson MD Unavailable Unavailable Allergies, Adverse Reactions, Alerts Substance Reaction Status Criticality iodine Active No Information morphine Active No Information Procedures Procedure Date PREV VISIT, NEW, AGE 40-64 OFFICE/OUTPATIENT VISIT, [facility] Advance Directives Directive Yes / No Effective Date File Name No Information Encounters Encounter Description Practice Location Reason(s) For Visit Diagnoses Date Provider Providers Copied on Encounter [facility], [address], [place], [place], [id number], [place] tel:[phone] [facility] No Information 3 Mark Anthony Salcedo. [address], [facility] [address], [place], [place], [id number] , [place]. tel:[phone] Referring Provider: Matias Hopson [address] [facility] [place], [id number]. tel:[phone] PREV VISIT, NEW, AGE 40-64 [facility], [address], [place], [place], [id number], [place] tel:[phone] [facility] Physical (chief complaint) Dietary surveillance and counselingRoutine Medical ExamChest Pain, UnspecifiedAbdomina l PainHEMATURIA NOSRoutine Medical Exam 3 Mark Anthony Salcedo. [address], [place], [place], [address] , [place]. tel:[phone] Referring Provider: Matias Hopson, [address], [place], [place], [id number]. tel:[phone] Family History Family Member Type Diagnosis Age At Onset Father Problem (finding) Alive and well Brother Problem (finding) Alive and well Mother Problem (finding) Alive and well Payers Payer name Insurance type Covered alliance party ID Authoriza tion(s) No Information Social History [...]
--- OUTSIDE RECORDS SUMMARY | 2025-04-28 08:10 | XMS_ITS | Clinical Summary ---
Author Organization [facility] Address [facility] [place] [address] Care Team Providers Care Sergeant At Arms Name Role Phone Unavailable Primary Care Provider [...] of 3 - 19+ 3-dose series) 1991 Pneumococcal Vaccine: 50+ Ye ars (1 of 1 - PCV) 2022 Zoster Vaccines (1 of 2) 2022 COVID-19 Vaccine ( - 2023-2 5 season) 2024 Meningococcal B Vaccine Aged Out No l onger eligible based on patient's age to complete this topic Meningococcal Vaccine Aged Out No carol sarwat eligible based on patient's age to complete this topic RSV Immunizations Under 20 Months Aged Out No longer eligible based on patient's age to complete this topic
--- OUTSIDE RECORDS SUMMARY | 2025-04-28 08:13 | XMS_ITS | Continuity of Care Document ---
Author Organization [facility] Address [address] [place] [address] [place] [address] Phone Care Team Providers Care Chemist Instrumentation Name Role Phone Matias Hopson MD Unavailable Unavailable Allergies, Adverse Reactions, Alerts Substance Reaction Status Criticality iodine Active No Information morphine Active No Information Procedures Procedure Date PREV VISIT, NEW, AGE 40-64 OFFICE/OUTPATIENT VISIT, [facility] Advance Directives Directive Yes / No Effective Date File Name No Information Encounters Encounter Description Practice Location Reason(s) For Visit Diagnoses Date Provider Providers Copied on Encounter [facility], [address], [place], [place], [id number], [place] tel:[phone] [facility] No Information [address] Mark Anthony Salcedo. [address], [facility] [address], [place], [place], [id number] , [place]. tel:[phone] Referring Provider: Matias Hopson [address] [facility] [place], [id number]. tel:[phone] PREV VISIT, NEW, AGE 40-64 [facility], [address], [place], [place], [id number], [place] tel:[phone] [facility] Physical (chief complaint) Dietary surveillance and counselingRoutine Medical ExamChest Pain, UnspecifiedAbdomina l PainHEMATURIA NOSRoutine Medical Exam [address] Mark Anthony Salcedo. [address], [place], [place], [id number] , [place]. tel:[phone] Referring Provider: Matias Hopson, [address], [place], [place], [id number]. tel:[phone] Family History Family Member Type Diagnosis Age At Onset Father Problem (finding) Alive and well Brother Problem (finding) Alive and well Mother Problem (finding) Alive and well Payers Payer name Insurance type Covered republican ID Authoriza tion(s) No Information Social History [...]
[2025-04-28 08:20] VITALS: BP 113/79; PULSE 81; RESP 18; TEMP 36.3; O2SAT 99
--- NOTE | 2025-04-28 08:20 | ED_ITS ---
HPI - URI/Sore Throat General Chief Complaint: Upper Respiratory Infection Stated Complaint: Cough/Sinus/sob Time Seen by Provider: 04/28/25 08:21 Source: patient Mode of arrival: ambulatory Limitations: no limitations History of Present Illness HPI Narrative: 54 y/o male presented for c/o cough nasal congestion and drainage, bilateral ear pressure. Onset 2 weeks. Patient endorses last night chills and body ac hes. Also says he feels fatigue and mild sob with exertion. He says he has taken multiple [id number] medications and nasal sprays without significant improvement. He is concerned because he had pneumonia 08/2024. denies cp, wheezing, n/v/d/f. Related Data Allergies Allergy/AdvReac Type Severity Reaction Status Date / Time shellfish derived Allergy Severe Swelling Verified 04/28/25 08:25 of Lip/Tongue/Throat Iodinated Contrast Media Allergy Unknown Unknown Verified 04/28/25 08:25 morphine AdvReac Intermediate Swelling Verified 04/28/25 08:25 Review of Systems Review of Systems: CONSTITUTIONAL: Denies fever, reports body aches, reports chills EYES: Denies visual changes, redness, or discharge. ENT: reports rhinorrhea, congestion, sore throat, otalgia. CARDIOVASCULAR: Denies chest pain, palpitations, or edema. RESPIRATORY: Reports cough, denies sob, wheezing. GASTROINTESTINAL: Denies abdominal pain, nausea, vomiting, or diarrhea. SKIN: Denies rash MUSCULOSKELETAL: Denies back pain, joint pain, or myalgia. NEUROLOGIC: Denies headache, numbness, tingling, or weakness. All systems reviewed & are unremarkable except as noted in HPI and below PMFSH Past Medical History Medical History Ulcerative colitis Family History Family History Other No significant medical problems Social History Social History Years smoked: 28 Smoking status: Former smoker Tobacco type: cigarettes Smoking end date: 09/20/10 Alcohol intake: current Drinks per week: 1 Substance use: never Substance use type: does not use Do You Feel Safe in your Home?: Yes Lack of Transportation: No Lack of Food: Never True Current Housing: I Have Housing Concerned About Future Housing: No Difficulty Paying Gas/Electric Bills: No Difficulty Paying for Meds: No Currently Unemployed: No Education: High School Diploma/GED Difficulty w/ Childcare or Family Care: No Spiritual care concerns: No Comments At time of signature, I have reviewed and agree with nursing past medical, surgical, social and family history unless otherwise noted. Please see nursing chart for further information. There is no relevant family history pertinent to the presenting complaint Exam Narrative: GENERAL: Well-appearing, in no acute distress. EYES: EOMI. No redness or drainage. Conjunctivae normal. ENT: Mucous membranes pink and moist. nasal congestion and rhinorrhea. TMs normal bilaterally. Throat normal. Uvula midline. NECK: Normal AROM. Supple. CHEST: No respiratory distress. Lungs clear to all leung. HEART: Regular rate and rhythm. No murmur appreciated. EXTREMITIES: Normal range of motion. No edema. SKIN: Warm, dry, no rash. Capillary refill normal. Normal skin turgor. NEURO: Alert and oriented x3. Gait steady. PSYCH: Normal affect. Course Course Emergency Course: Patient is aware of diagnosis, understands and agrees to treatment plan. Anticipatory guidance given. Patient agrees to follow-up as directed and is aware of reasons to seek care at the emergency department. Portions of this record may have been created with voice recognition software Level of Care: Express Care Visit Vital Signs Vital signs: Vital Signs Temperature 97.3 F L 04/28/25 08:20 Pulse Rate 81 04/28/25 08:20 Respiratory Rate 18 04/28/25 08:20 Blood Pressure 113/79 04/28/25 08:20 Pulse Oximetry 99 04/28/25 08:20 Oxygen Delivery Room Air 04/28/25 08:20 Temperature 97.3 F L 04/28/25 08:20 Pulse Rate 81 04/28/25 08:20 Respiratory Rate 18 04/28/25 08:20 Blood Pressure 113/79 04/28/25 08:20 Pulse Oximetry 99 04/28/25 08:20 Oxygen Delivery Room Air 04/28/25 08:20 MDM - URI/Sore Throat MDM Narrative Medical decision making narrative: Flu and COVID negative. Results reviewed with patient. Discussed physical exam findings; pt declines albuterol inhaler. Pt also declines CXR due to cost. Advised supportive measures and signs/symptoms to go to the ER. Pt is appropriate for outpt treatment and f/u. Differential Diagnosis Differential diagnosis: Likely upper respiratory infection, sinusitis, viral infection, bronchitis, pharyngitis and other (Angioedema, perforation, asthma, pneumonia, PE, tension pneumothorax, cardiac tamponade GA, pericarditis, pleural effusion, CHF, bronchitis, cardiac arrhythmia) Discharge Plan Discharge Clinical Impression: Sinusitis Patient Disposition: Home Condition: Stable Instructions: Antibiotic Form, Rhinosinusitis (ED), Community Acquired Pneumonia (ED) Additional Instructions: Covid and flu negative Take antibiotic as directed Recommendations: Flonase spray and Zyrtec (or Claritin/Hailey) over the counter Cough syrup may cause drowsiness; avoid driving or take it at night time. Tylenol 1000mg every 8 hours as needed for pain rest, push fluids, and increase humidity of the air at home. Pneumonia is a lung infection that can cause a fever, cough, and trouble breathing. How it spreads: When someone with bacterial pneumonia coughs, sneezes, or talks, they release respiratory droplets into the air that can be inhaled by others.?You can also get pneumonia by touching a contaminated surface or object and then touching your mouth or nose. You're generally contagious for around 48 hours after starting antibiotics and your fever goes away.? To prevent the spread of pneumonia, you can:? ? Get vaccinated? ? Wash your hands often with soap and water for 20 seconds? ? Cover your mouth with a tissue when you cough or sneeze? ? Avoid people who are already sick with pneumonia? ? Stay home when you have pneumonia Call your Primary Care Doctor and make a follow-up appointment in 3 days. Go to the ER for worsening symptoms or concerns Patient Language: Slovenian Prescriptions: New benzonatate 200 mg capsule 200 mg PO TID PRN (Reason: cough) Qty: 20 0RF methylprednisolone [Medrol (Jessee)] 4 mg tablets,dose pack See Rx Instructions .ROUTE .COMPLEX Qty: 21 0RF Rx Instructions: orally per package directions amoxicillin-pot clavulanate 875-125 mg tablet 1 tablet PO Q12H 7 Days Qty: 14 0RF Follow-up/Referrals: UNKNOWN,DOCTOR [Primary Care Provider] - Time of Disposition: 08:37
[2025-04-28 08:37] LABS: EDINFLUASCREEN Negative (Negative); EDINFLUBSCREEN Negative (Negative)
[2025-04-28 08:37] LABS: EDCOVIDSCREEN Negative (Negative)
== END 2025-04-28 08:42 | disposition home or self-care (01) ==
PROVIDERS: Emergency Provider Nurse Practitioner Family
DX: J32.9 Chronic sinusitis, unspecified (principal); Z20.822 Contact with and (suspected) exposure to COVID-19; Z87.891 Personal history of nicotine dependence
CPT/HCPCS: 87426; 87804; 99213; G0463